=== PATIENT | female | born 1990 ===

== ENCOUNTER → 2016-08-05 | Outpatient (CLI) | payer OTHER ==
--- NOTE | 2016-08-05 18:09 | DX ---
Right Shoulder, Three Views August 05, 2016 at 4:51 p.m. Clinical History: 25-year-old female who sustained an injury while snowboarding today, and complains of pain along the top of the shoulder. Comparison Study: None. Findings: There is mild cephalad subluxation of the distal clavicle relative to the acromion, consist ent with a type II sprain injury. The glenohumeral alignment is anatomic, and the coracoclavicular di stance is still normal. The scapula and the visualized right rib cage are unremarkable. Impression: Type II sprain injury of the right acromioclavicular joint.
== END ==
LOC: BMCIMAGING 16:55
PROVIDERS: ATTEND Emergency Medicine
DX: S43.51XA Sprain of right acromioclavicular joint, initial encounter (principal); Y93.23 Activity, snow (alpine) (downhill) skiing, snowboarding, sledding, tobogganing and snow tubing; V00.318A Other snowboard accident, initial encounter